=== PATIENT | male | born 1980 | race Caucasian/White ===

== ENCOUNTER 2016-04-21 10:08 | Emergency (ER) | payer OTHER ==
[2016-04-21 10:38] VITALS: BP 147/92
[2016-04-21] MEDS ORDERED: Diphtheria,Pertussis(Acell),Tetanus Vaccine 0.5 ML SDV IM ONE (11:13)
[2016-04-21] MEDS ORDERED: Bacitracin Oint 1 GM U/D Packet TOP ONE (11:13)
--- NOTE | 2016-04-21 11:28 | EDM.PDOC ---
ED HPI Skin/Rash - General Chief Complaint: Laceration Stated Complaint: INJURY ON RIGHT HAND Time Seen by Provider: 04/21/16 10:40 Source: Reports: Patient History Limitations: Reports: No limitations - History of Present Illness INITIAL COMMENTS - FREE TEXT/NARRATIVE: This patient was using a wrench from some heavy equipment when the wrench slipped and he hit his knuckle against some metal parts. He suffered a laceration. He thinks he can see the bone. This happened just prior to arrival - Related Data Allergies Allergy/AdvReac Type Severity Reaction Status Date / Time No Known Allergies Allergy Verified 04/21/16 10:24 Home Meds: Ambulatory Orders Medication Instructions Recorded Confirmed NK [No Known Home Meds] 04/21/16 04/21/16 Past Medical History Musculoskeletal History: Reports: Fracture - Past Surgical History HEENT Surgical History: Reports: Other (see below) Other HEENT Surgeries/Procedures: oral surgery Social & Family History - Tobacco Use Smoking Status *Q: Never Smoker - Recreational Drug Use Recreational Drug Use: No ED ROS GENERAL - Review of Systems Review Of Systems: ROS reveals no pertinent complaints other than HPI. ED EXAM, SKIN/RASH Exam: See Below Exam Limited By: No limitations General Appearance: alert, WD/WN, no apparent distress Extremities: other (There is a laceration to the dorsum of the right hand it's own the index finger about 1 cm distal to the MCP joint. It's approximately 1.5 cm long and transverse. It appears to be a flap with the opening pointing towards the distal finger. Neurovascular tendon all intact this is a clean wound) Course - Vital Signs Last Recorded V/S: Last Vital Signs Temp 36.2 C 04/21/16 10:24 Pulse 79 04/21/16 10:24 Resp 14 04/21/16 10:24 BP 147/92 H 04/21/16 10:24 Pulse Ox 97 04/21/16 10:24 - Orders/Labs/Meds Orders: Active Orders 24 hr Category Date Time Status Vaccines to be Administered [RC] PER UNIT ROUTINE Care 04/21/16 11:13 Active Meds: Medications Discontinued Medications Generic Name Dose Route Start Last Admin Trade Name Freq PRN Reason Stop Dose Admin Bacitracin 1 dose 04/21/16 11:13 04/21/16 11:17 Bacitracin Oint 1 Gm TOP 04/21/16 11:14 1 dose ONETIME ONE Administration Diphtheria/Tetanus/Acell Pertussis 0.5 ml 04/21/16 11:13 04/21/16 11:18 Adacel IM 04/21/16 11:14 0.5 ml .ONCE ONE Administration Lidocaine HCl 5 ml 04/21/16 10:41 04/21/16 10:46 Xylocaine-Mpf 1% INJECT 04/21/16 10:42 5 ml ONETIME ONE Administration - Re-Assessments/Exams Free Text/Narrative Re-Assessment/Exam: 04/21/16 11:25 Procedure: Laceration repair. The wound was anesthetized with approximately 3.5 mL 1% plain lidocaine. The hand was then scrubbed with Shur-Clens. The wound margin was then elevated and the wound flushed with saline. The extensor tendon sheath is visible but there is no damage to it. There is no possibility of penetration of the joint capsule. The wound was copiously flushed with saline and closed with 2 simple stitches of 4-0 nylon. A bacitracin dressing was then applied Departure - Departure Time of Disposition: 11:26 Disposition: Home, Self-Care 01 Condition: fair Clinical Impression: Laceration of right index finger Forms: ED Department Discharge Additional Instructions: Wash the wound daily with soap and water. Apply any antibiotic ointment and keep it covered with a dressing. Keep the dressing clean and dry. See your doctor in 10 days for suture removal. Watch for any signs of infection. You were given a tetanus diphtheria and pertussis injection this is good for 10 years - My Orders Last 24 Hours: My Active Orders 04/21/16 11:13 Vaccines to be Administered [RC] PER UNIT ROUTINE - Assessment/Plan Last 24 Hours: My Active Orders 04/21/16 11:13 Vaccines to be Administered [RC] PER UNIT ROUTINE
== END 2016-04-21 11:33 | disposition home or self-care (01) ==
LOC: JP.ED 10:08
DX: S61.210A Laceration without foreign body of right index finger without damage to nail, initial encounter (principal); Z23 Encounter for immunization; W20.8XXA Other cause of strike by thrown, projected or falling object, initial encounter
CPT/HCPCS: 12001; 90471; 90715; 99283-25

== ENCOUNTER 2021-11-19 07:57 | Observation (INO) | payer OTHER ==
[2021-11-19] MEDS ORDERED: Sodium Chloride 0.9% 10 ML Syringe FLUSH PRN (08:03)
[2021-11-19] MEDS ORDERED: HYDROmorphone 1 MG/ML Syringe IVPUSH ONE (08:25)
[2021-11-19] MEDS ORDERED: Ondansetron 4 MG/2 ML SDV IVPUSH ONE (08:33)
[2021-11-19] MEDS ORDERED: Sodium Chloride 0.9% 1,000 ML IV SCH (08:45)
[2021-11-19 08:54] LABS: ESTIMATED GFR 86 mL/min (>60)
[2021-11-19] MEDS ORDERED: Iopamidol 612 MG/ML 100 ML Bottle IV ONE (09:04)
[2021-11-19] MEDS ORDERED: Sodium Chloride 0.9% 50 ML IV SCH (09:15)
[2021-11-19] MEDS ORDERED: Ampicillin/Sulbactam Na 3 GM in Sodium Chloride 0.9% 100 ML IV ONE ×3 (09:52→22:55)
[2021-11-19 10:47] VITALS: BP 102/61; PULSE 71
[2021-11-19] MEDS ORDERED: HYDROmorphone 0.5 MG/0.5 ML Syringe IVPUSH ONE (10:47)
[2021-11-19] MEDS ORDERED: Ropivacaine 44 ML, dexAMETHasone 8 MG, EPINEPHrine 0.4 MG, Sodium Chloride 0.9% 33.6 ML INJECT ONE ×4 (11:00)
[2021-11-19] MEDS ORDERED: Ketamine 500 MG/5 ML MDV IV ONE ×2 (11:00)
[2021-11-19] MEDS ORDERED: Lidocaine 1% 50 ML MDV ONE ×2 (11:22→12:00)
[2021-11-19] MEDS ORDERED: Bupivacaine 0.5%/EPINEPHrine 1:200,000 50 ML MDV ONE (11:22)
[2021-11-19] MEDS ORDERED: HYDROmorphone 1 MG/ML Syringe IV ONE (11:45)
[2021-11-19] MEDS ORDERED: Dextrose 5%-Lactated Ringers 1,000 ML IV ONE ×2 (11:45→18:31)
[2021-11-19] MEDS ORDERED: Glycopyrrolate 0.2 MG/ML 5 ML MDV ONE ×2 (11:46→12:00)
[2021-11-19] MEDS ORDERED: Ondansetron 4 MG/2 ML SDV ONE ×2 (11:46→12:00)
[2021-11-19] MEDS ORDERED: Rocuronium 50 MG/5 ML Vial ONE ×2 (11:46→12:00)
[2021-11-19] MEDS ORDERED: Propofol 200 MG/20 ML SDV ONE ×2 (11:46→12:00)
[2021-11-19] MEDS ORDERED: fentaNYL 250 MCG/5 ML SDV ONE ×2 (11:46→12:00)
[2021-11-19] MEDS ORDERED: Neostigmine Methylsulfate 1 MG/ML 5 ML Syringe ONE ×2 (11:46→12:00)
[2021-11-19] MEDS ORDERED: Succinylcholine 200 MG/10 ML MDV ONE ×2 (11:46→12:00)
[2021-11-19] MEDS ORDERED: Dexamethasone 4 MG/ML SDV ONE ×2 (11:46→12:00)
[2021-11-19] MEDS ORDERED: SODIUM CHLORIDE 0.9% IV ONE (12:00)
[2021-11-19] MEDS ORDERED: KETAMINE IV ONE (12:00)
[2021-11-19] MEDS ORDERED: Lactated Ringers 1,000 ML IV ONE (12:00)
[2021-11-19] MEDS ORDERED: Bupivacaine 0.5% 50 ML MDV ONE (12:00)
[2021-11-19] MEDS ORDERED: Meropenem 500 MG SDV ONE ×2 (12:00→14:07)
[2021-11-19] MEDS ORDERED: Ketamine 24 MG in Sodium Chloride 0.9% 19.76 ML IV ONE (12:00)
[2021-11-19] MEDS ORDERED: Ketorolac 30 MG/ML SDV ONE ×3 (12:00→14:33)
[2021-11-19] MEDS ORDERED: HYDROmorphone/Normal Saline 6 MG/30 ML PCA Vial ONE (12:00)
[2021-11-19] MEDS ORDERED: fentaNYL 100 MCG/2 ML SDV ONE ×2 (12:00→14:20)
[2021-11-19] MEDS ORDERED: Lactated Ringers 1,000 ML ONE (14:00)
[2021-11-19] MEDS ORDERED: Sodium Chloride 0.9% 10 ML ONE (14:07)
[2021-11-19] MEDS ORDERED: Ibuprofen 600 MG Tab PO ONE (21:00)
[2021-11-19] MEDS ORDERED: Acetaminophen 500 MG Tab PO ONE (22:00)
[2021-11-20] MEDS ORDERED: Ampicillin/Sulbactam Na 3 GM in Sodium Chloride 0.9% 100 ML IV ONE ×4 (06:00→22:00)
[2021-11-20] MEDS ORDERED: HYDROmorphone/Normal Saline 6 MG/30 ML PCA Vial IV ONE (06:50)
[2021-11-20] MEDS ORDERED: Docusate Sodium 100 MG Cap ONE ×2 (09:00)
[2021-11-20] MEDS ORDERED: Bisacodyl 5 MG Tab ONE ×2 (09:00)
[2021-11-20] MEDS ORDERED: Acetaminophen 500 MG Tab ONE (09:00)
[2021-11-20] MEDS ORDERED: Ibuprofen 600 MG Tab ONE ×3 (09:00)
[2021-11-20] MEDS ORDERED: Dextrose 5%-Lactated Ringers 1,000 ML IV ONE (09:00)
[2021-11-20] MEDS ORDERED: oxyCODONE 5 MG Tab PO ONE ×3 (12:50→22:00)
[2021-11-21] MEDS ORDERED: Bisacodyl 5 MG Tab ONE (09:00)
[2021-11-21] MEDS ORDERED: Acetaminophen 500 MG Tab ONE (09:00)
[2021-11-21] MEDS ORDERED: Magnesium Hydroxide 400 MG/5 ML Susp 30 ML Cup ONE (09:00)
[2021-11-21] MEDS ORDERED: Docusate Sodium 100 MG Cap ONE (09:00)
[2021-11-21] MEDS ORDERED: Ibuprofen 600 MG Tab ONE (09:00)
== END 2021-11-21 10:20 | disposition home or self-care (01) ==
LOC: JP.ED 07:57 → JP.ZCENSUS 09:59 → JP.ED 11:15
PROVIDERS: ADMIT Family Medicine; ATTEND Surgery
DX: K35.33 Acute appendicitis with perforation, localized peritonitis, and gangrene, with abscess (principal); F17.220 Nicotine dependence, chewing tobacco, uncomplicated; Z01.812 Encounter for preprocedural laboratory examination; Z20.822 Contact with and (suspected) exposure to COVID-19
CPT/HCPCS: 36415; 44970; 74177; 80053; 85025; 86140; 87070; 87075; 87077; 87186; 87205; 87635; 88304; 94762; A9270; J0171; J0295; J0330; J1100; J1170; J1885; J2001; J2185; J2405; J2704; J2710; J2795; J3010; J3490; J7030; J7120; J7121; Q9967; U0002

== ENCOUNTER 2023-11-06 12:43 | Observation (INO) | payer OTHER ==
[2023-11-06 13:15] LABS: APPEARANCE,URINE CLEAR (CLEAR); BILIRUBIN,URINE SMALL (NEGATIVE); COLOR,URINE YELLOW (YELLOW); GLUCOSE,URINE NEGATIVE (NEGATIVE); KETONES,URINE TRACE mg/dL (NEGATIVE); LEUKOCYTE ESTERASE,URINE NEGATIVE (NEGATIVE); NITRITE,URINE NEGATIVE (NEGATIVE); OCCULT BLOOD,URINE SMALL (NEGATIVE); PROTEIN,URINE 100 mg/dL (NEGATIVE)
[2023-11-06 13:18] LABS: AMORPHOUS SEDIMENT,URINE NOT SEEN; BACTERIA,URINE NOT SEEN; EPITHELIAL CELLS,URINE NOT SEEN; MUCUS,URINE MODERATE; RBC,URINE 0-5 (0-5); WBC,URINE 0-5 (0-5)
[2023-11-06 13:26] LABS: BASOPHILS PERCENT AUTO 0.1 % (0.1-1.3); HEMATOCRIT 43.7 % (38.4-49.7); HEMOGLOBIN 16.4 g/dL (12.9-16.9); IMMATURE GRAN ABSOLUTE AUTO 0.06 K/uL (0.00-0.23); IMMATURE GRAN PERCENT AUTO 0.4 % (0.0-0.7); LYMPHOCYTES ABSOLUTE AUTO 0.79 K/uL (0.8-3.3); LYMPHOCYTES PERCENT AUTO 5.2 % (11.4-47.7); MEAN CORPUSCULAR HEMOGLOBIN 31.8 pg (31.6-35.5); MEAN CORPUSCULAR HGB CONC 37.5 g/dL (31.6-35.5); MEAN CORPUSCULAR VOLUME 84.7 fL (81.4-99.0); MONOCYTES ABSOLUTE AUTO 1.34 K/uL (0.20-0.90); MONOCYTES PERCENT AUTO 8.9 % (3.3-12.6); NEUTROPHILS ABSOLUTE AUTO 12.92 K/uL (1.0-7.6); NEUTROPHILS PERCENT AUTO 85.4 % (40.0-78.1); PLATELET COUNT,PLT 264 K/uL (130-375); RED BLOOD CELL COUNT 5.16 M/uL (4.14-5.76); WHITE BLOOD CELL COUNT,WBC 15.1 K/uL (3.2-11.0)
[2023-11-06 13:28] LABS: BASOPHILS ABSOLUTE AUTO 0.02 K/uL (0.00-0.10)
[2023-11-06] MEDS: Sodium Chloride 0.9% 1,000 ML IV SCH ×2 (13:31→14:55)
[2023-11-06 13:36] LABS: A/G RATIO 0.8 (1.2-2.2); ALANINE AMINOTRANSFERASE,ALT 34 U/L (12-78); ALBUMIN 3.7 g/dL (3.4-5.0); ALKALINE PHOSPHATASE 105 U/L (46-116); ANION GAP 15.2 mmol/L (5.0-14.0); ASPARTATE AMNIOTRANSFERASE,AST 27 U/L (15-37); BILIRUBIN TOTAL 0.9 mg/dL (0.2-1.0); BLOOD UREA NITROGEN,BUN 11 mg/dL (7-18); CALCIUM 9.1 mg/dL (8.5-10.1); CARBON DIOXIDE,CO2 25 mmol/L (21-32); CHLORIDE,CL 101 mmol/L (100-108); CREATININE 1.5 mg/dL (0.8-1.3); EST CRCL DRUG DOSING (CG) 73.07 mL/min; ESTIMATED GFR 59 mL/min (>60); GLUCOSE RANDOM 137 mg/dL (74-106); POTASSIUM,K 3.2 mmol/L (3.6-5.2); PROTEIN TOTAL,TP 8.2 g/dL (6.4-8.2); SODIUM,NA 138 mmol/L (140-148)
[2023-11-06 13:39] LABS: LACTIC ACID 1.4 mmol/L (0.4-2.0)
[2023-11-06] MEDS: Acetaminophen 500 MG Tab PO ONE (13:43)
[2023-11-06 13:55] LABS: CORONAVIRUS COVID-19 NAA NEGATIVE (NEGATIVE); INFLUENZA A NAA NEGATIVE (NEGATIVE); INFLUENZA B NAA NEGATIVE (NEGATIVE); RESPIRATORY SYNCYTIAL VIR NAA NEGATIVE (NEGATIVE)
[2023-11-06] MEDS: cefTRIAXone 1 GM in Sodium Chloride 0.9% 50 ML IV ONE (15:25)
[2023-11-06] MEDS ORDERED: Magnesium Hydroxide 400 MG/5 ML Susp 30 ML Cup PO PRN (16:59)
[2023-11-06] MEDS ORDERED: Sennosides/Docusate Sodium 50-8.6 MG Tab PO PRN (16:59)
[2023-11-06] MEDS ORDERED: Ketorolac 30 MG/ML SDV IVPUSH PRN (16:59)
[2023-11-06] MEDS ORDERED: Benzonatate 100 MG Cap PO PRN (16:59)
[2023-11-06] MEDS ORDERED: Ondansetron 4 MG/2 ML SDV IV PRN (16:59)
[2023-11-06] MEDS ORDERED: Ondansetron 4 MG Tab.DIS PO PRN (16:59)
[2023-11-06] MEDS ORDERED: guaiFENesin/Dextromethorphan 100-10 MG/5 ML Soln 10 ML Cup PO PRN (16:59)
[2023-11-06] MEDS: Ibuprofen 600 MG Tab PO PRN (17:19)
[2023-11-06] MEDS: Azithromycin 500 MG in Sodium Chloride 0.9% 250 ML IV ONE (17:32)
[2023-11-06] MEDS: Potassium Chloride 20 MEQ Tab.ER PO ONE (18:32)
[2023-11-06] MEDS: Doxycycline 100 MG in Sodium Chloride 0.9% 100 ML IV SCH (19:22)
[2023-11-06] MEDS: Lactobacillus Rhamnosus GG (Probiotic) Cap PO SCH (21:46)
[2023-11-06] MEDS: NS + KCl 20mEq/L 1,000 ML IV SCH (21:46)
[2023-11-06] MEDS: Acetaminophen 325 MG Tab PO PRN (23:24)
[2023-11-07] MEDS: cefTRIAXone 2 GM in Sodium Chloride 0.9% 50 ML IV SCH (02:28)
[2023-11-07 05:03] LABS: HEMATOCRIT 38.3 % (38.4-49.7); HEMOGLOBIN 14.1 g/dL (12.9-16.9); MEAN CORPUSCULAR HEMOGLOBIN 31.5 pg (31.6-35.5); MEAN CORPUSCULAR HGB CONC 36.8 g/dL (31.6-35.5); MEAN CORPUSCULAR VOLUME 85.7 fL (81.4-99.0); RED BLOOD CELL COUNT 4.47 M/uL (4.14-5.76); WHITE BLOOD CELL COUNT,WBC 11.5 K/uL (3.2-11.0)
[2023-11-07 05:24] LABS: ANION GAP 7.8 mmol/L (5.0-14.0); CALCIUM 8.7 mg/dL (8.5-10.1); CREATININE 1.3 mg/dL (0.8-1.3); EST CRCL DRUG DOSING (CG) 84.31 mL/min
[2023-11-07] MEDS ORDERED: Azithromycin 250 MG Tab PO SCH (12:00)
[2023-11-07 13:30] VITALS: BP 126/72; PULSE 78
[2023-11-09 16:30] LABS: HISTOPLASMA GALACTO AG INTRP,U Not Detected (Not Detected); HISTOPLASMA GALACTOMAN AG QN,U Not Detected
== END 2023-11-07 13:32 | disposition home or self-care (01) ==
LOC: JP.ED 12:43 → JP.MS 16:22
PROVIDERS: ADMIT Internal Medicine; ATTEND Internal Medicine
DX: J18.9 Pneumonia, unspecified organism (principal); F17.210 Nicotine dependence, cigarettes, uncomplicated
CPT/HCPCS: 0241U; 36415; 71046; 71250; 80048; 80053; 81001; 83605; 85025; 85027; 85379; 86140; 87040; 87385; 99222; 99238; A9270; J0456; J0696; J3480; J3490; J7030; J7050